=== PATIENT | female | born 2005 | race Caucasian/White ===

== ENCOUNTER 2023-08-06 18:30 | Outpatient (CLI) | payer OTHER, SELFPAY | END 2023-08-06 18:31 | disposition home or self-care (01) | LOC: NFLDREF 08-23 09:06 | PROVIDERS: PCP Registered Nurse; Visit Provider Registered Nurse | DX: R07.89 Other chest pain (principal) | CPT/HCPCS: 84484 ==

== ENCOUNTER 2024-07-17 16:44 | Emergency (ER) | payer OTHER, SELFPAY ==
--- OUTSIDE RECORDS SUMMARY | 2024-07-17 16:47 | XMS_ITS | Clinical Summary ---
Author Organization [facility] Address [address] [facility] [place] [address] Care Team Providers Care Supervisor Litharge Name Role Phone Unavailable Primary Care Provider Unavailabl e Social History Tobacco Use Types Packs/Day Years Used Date Smoking Tobacco: Never Assessed Comments Unknown Sex and Gender Information Value Date Recorded Sex Assigned at Not on file Legal Sex Female 12:00 AM PST Gender Identity Not on file Sexual Orientation Not on file Plan of Treatment Not on file
--- OUTSIDE RECORDS SUMMARY | 2024-07-17 16:47 | XMS_ITS | Clinical Summary ---
Author Organization [facility] Address [address] [place] [address] Care Team Providers Care Brush Loader And Handle Attacher Name Role Phone Unavailable Primary Care Provider Unavailabl e Social History Tobacco Use Types Packs/Day Years Used Date Smoking Tobacco: Never Assessed Comments Unknown Sex and Gender Information Value Date Recorded Sex Assigned at Not on file Legal Sex Female 1:46 PM HAND III CUTTER Gender Identity Not on file Sexual Orientation Not on file Plan of Treatment Not on file
--- OUTSIDE RECORDS SUMMARY | 2024-07-17 16:47 | XMS_ITS | Encounter Summary ---
Author Organization [facility] Address [address] [place] [address] Care Team Providers Care Driver Guide Name Role Phone Madelyn Oneil MD Primary Care Provider [phone] Encounter Details Date Type Department Care Team (Late st Contact Info) Description 01/13/2023 Prep for Case Gastroenterology: [facility] [address] [place] [address] Seth Madrid MD [address] [facility] [address] [place] [address] Constipation, unspecified constipation type (Primary Dx); Blood in stool Social History Tobacco Use Types Packs/Day Years Used Date Smoking Tobacco: Never Smokeless Tobacco: Never Alcohol Use Standard Drinks/Week Comments Not Currently 3 (1 standard drink = 0.6 oz pure alcohol) I drink very very occasionally Alcohol Use Answer Date Recorded Alcohol Use No 01/13/2023 Male: 9+ ounces (15+ Standard Drinks) per week T hreshold Not on file 01/13/2023 Female: 4.8+ ounces (8+ Standard Drinks) per wee k Threshold 1.8 01/13/2023 Comments Unknown Sex and Gender Information Value Date Recorded Sex Assigned at Female 02/15/2023 10:01 AM TUBE STATION ATTENDANT Legal Sex Female 12:53 PM CDT Gender Identity Female 02/15/2023 10:01 AM TUBE STATION ATTENDANT Sexual Orientation Not on file documented as of this encounter Plan of Treatment Not on file documented as of this encounter Visit Diagnoses Diagnosis Constipation, unspecified constipation type- Primary Blood in stool documented in this encounter Orders Case Request Count Last Ordered Date First Orde red Date CASE REQUEST GI ENDOSCOPY 1 01/13/2023 documented in this encounter Care Teams Driver Guide Relationship Specialty Start Date End Date Madelyn Oneil MD [address] [place] [address] PCP - General Emergency Medicine 10/21/22 documented as of this encounter
--- OUTSIDE RECORDS SUMMARY | 2024-07-17 16:47 | XMS_ITS | Encounter Summary ---
Author Organization [facility] Address [address] [place] [address] Care Team Providers Care Transport Conductor Name Role Phone Unavailable Primary Care Provider Unavailabl e Prior Encounters Date Type Department Care Team Description 04/17/2019 Converted CPS Chart Documents [facility] [address] [place] [phone] <No scans attached> 04/17/2019 Converted 13x Documents [facility] [address] [place] [phone] <No scans attached> Plan of Treatment Not on file Procedures Procedure Name Priority Date/Time Associated Diagnosis Comments TOPICAL APPLICATION OF FLUORIDE VARNISH Routine 01/06/2016 2:00 AM CDT PROPHYLAXIS - CHILD Routine 01/06/2016 2 :00 AM CDT ORAL HYGIENE INSTRUCTIONS Routine 2015 2:00 AM CDT PERIODIC ORAL EVALUATION - ESTABLISHED PATIENT Routine 01/06/2016 2:00 AM CDT TOPICAL APPLICATION OF FLUORIDE VARNISH Routine 07/01/2015 2:00 AM CDT PROPHYLAXIS - CHILD Routine 07/01/2015 2 :00 AM CDT ORAL HYGIENE INSTRUCTIONS Routine 2015 2:00 AM CDT PERIODIC ORAL EVALUATION - ESTABLISHED PATIENT Routine 07/01/2015 2:00 AM CDT TOPICAL APPLICATION OF FLUORIDE VARNISH Routine 12/17/2014 2:00 AM CDT PROPHYLAXIS - CHILD Routine 12/17/2014 2 :00 AM CDT COMPREHENSIVE ORAL EVALUATION - NEW OR ESTABLISHED PATIENT Routine 12/17/2014 2:00 AM CDT ORAL HYGIENE INSTRUCTIONS Routine 2014 2:00 AM CDT BITEWINGS - TWO RADIOGRAPHIC IMAGES Routine 12/17/2014 2:00 AM CDT LIMITED ORAL EVALUATION - PROBLEM FOCUSED Routine 11/09/2014 2:00 AM CDT SINGLE X-RAY Routine 11/09/2014 2:00 AM CDT Visit Diagnoses Not on file
--- OUTSIDE RECORDS SUMMARY | 2024-07-17 16:47 | XMS_ITS | Clinical Summary ---
Author Organization [facility] Address [address] [place] [address] Care Team Providers Care Spotter Driver Name Role Phone Madelyn Oneil MD Primary Care Provider [phone] Source Comments Some departments are not documenting in the electronic medical record. If you do not see the information that you expected, contact Release of Information in the Health Information Management department at [phone] for further assistance in locating additional records.[facility] Allergies No known active allergies Medications buPROPion XL (WELLBUTRIN XL) 150 mg tablet 3 Active psyllium husk (with sugar) (METAMUCIL (WITH SUGAR)) 3.4 gram packet Take one packet by mouth twice daily. 60 packet 11 3 Active docusate (COLACE) 100 mg capsule Take one capsule by mouth twice daily. 60 capsule 5 3 Active polyethylene glycol 3350 (MIRALAX) 17 g packet Take one packet by mouth daily. 60 packet 3 3 Active peg-electrolyte solution (NULYTELY LEMON-GULKANA) 420 gram oral solution Mix as directed on package. Drink 240ml (8oz) every 10 minutes until gone. Refrigerate once mixed. 4000 mL 4 Active escitalopram oxalate (LEXAPRO) 10 mg tablet Take one tablet by mouth daily. 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 We are not sure though. Depression Apr 20 I take Wellbutri n Social History Tobacco Use Types Packs/Day Years Used Date Smoking Tobacco: Never Smokeless Tobacco: Never Tobacco Cessation:Counseling Given: Not Answered Alcohol Use Standard Drinks/Week Comments Not Currently 3 (1 standard drink = 0.6 oz pure alcohol) I drink very very occasionally Alcohol Use Answer Date Recorded Alcohol Use No 01/13/2023 Male: 9+ ounces (15+ Standard Drinks) per week T hreshold Not on file 01/13/2023 Female: 4.8+ ounces (8+ Standard Drinks) per wee k Threshold 1.8 01/13/2023 Comments No Sex and Gender Information Value Date Recorded Sex Assigned at Female 02/15/2023 10:01 AM MANUFACTURING MAINTENANCE MANAGER Legal Sex Female 12:53 PM CDT Gender Identity Female 02/15/2023 10:01 AM MANUFACTURING MAINTENANCE MANAGER Sexual Orientation Not on file Obstetrics History Last Filed Vital Signs Vital Sign Reading Time Taken Comments Blood Pressure 110/71 11/01/2023 12:02 PM CDT Pulse 92 11/01/2023 12:02 PM CDT Temperature 37 C (98.6 F) 11/01/2023 12:02 PM CDT Respiratory Rate - - Oxygen Saturation 99% 11/01/2023 12:02 PM CDT Inhaled Oxygen Concentration - - Weight 65.8 kg (145 lb) 11/01/2023 12:02 PM CDT Height - - Body Mass Index - - Plan of Treatment Health Maintenance Due Date Last Done Comments HIV SCREENING 09/22/2018 HPV VACCINES (1 - 3-dose series) 09/22/2018 MENINGOCOCCAL B VACCINE (1 o f 2 - Standard) 2019 DTAP/TDAP VACCINES (1 - Tdap) 09/22/2021 HEPATITIS C SCREENING 09/22/2021 PHYSICAL (COMPREHENSIVE) EXAM 09/22/2021 COVID-19 VACCINE (4 - 2023-2 5 season) 2023 02/25/2022, 05/10/2021, 10/03/2020 DEPRESSION SCREENING 03/29/2024 INFLUENZA VACCINE (Season Ended) 2024 02/25/2022 MENINGOCOCCAL VACCINE (ACWY,Menactra) Aged Out No longer eligible b ased on patient's age to complete this topic PNEUMOCOCCAL VACCINE Aged Out No long er eligible based on patient's age to complete this topic Insurance [facility] CHOICE/CHOICE PLUS Care Teams Spotter Driver Relationship Specialty Start Date End Date Madelyn Oneil MD [address] [place] [address] PCP - General Emergency Medicine 10/21/22
[2024-07-17 16:52] VITALS: BP 135/91; PULSE 98; RESP 16; TEMP 37.1; O2SAT 98; BMI 28.2
--- NOTE | 2024-07-17 17:11 | CRLHL7_ITS ---
For Patients: As a result of the Century Cures Act, medical imaging exams and procedure reports are released immediately into your electronic medical record. You may view this report before your referring provider. If you have questions, please contact your health care provider. INDICATION: Leg pain and swelling. TECHNIQUE: Ultrasound venous duplex lower right extremity. Compression venous exam was performed using becerra-scale, color Doppler, and spectral Doppler analysis. COMPARISON: None. FINDINGS: Deep veins: Sonographic imaging demonstrates the right common femoral, deep femoral, superficial femoral, popliteal, posterior tibial and the contralateral common femoral veins to be fully compressible with normal color Doppler blood flow. Superficial veins: Greater saphenous vein is fully compressible. No popliteal cyst. IMPRESSION: Normal right lower extremity venous ultrasound, no sign of deep venous thrombosis. Dictated by Charles Hamilton MD @ 07/17/2024 7:24:48 PM (Electronically Signed)
--- NOTE | 2024-07-17 18:41 | ED.GENADULT ---
HPI - General Adult General Time Seen by Provider: 18:41 Date Seen: 08/02/24 Chief complaint: Extremity Pain/Injury, Lower Stated complaint: possible blood clot in right leg Time Seen by Provider: 07/17/24 18:36 Source: patient, RN notes reviewed and old records reviewed Mode of arrival: ambulatory Limitations: no limitations History of Present Illness HPI narrative: 18-year-old female who presents today with concern for blood clot in her leg. Patient says she was walking this morning, had a sudden sharp pain in her lateral calf on the right and a little bit radiating into the medial knee. Was still able to walk, took some ibuprofen and felt better but has continued to have some pain. No chest pain, no shortness of breath. She has a history of a ?venous malformation? in the right leg and there is been intermittent concern for clots but she has never had a documented clot. Related Data Home Medications ?Medication ?Instructions ?Recorded ?Confirmed bupropion HCl 300 mg 24 hr tablet, 300 mg PO DAILY 08/06/23 07/17/24 extended release Allergies Allergy/AdvReac Type Severity Reaction Status Date / Time No Known Drug Allergies Allergy Verified 07/17/24 16:51 PFSH PFSH Social History Smoking Status: Never smoker How often do you have a drink containing alcohol: never AUDIT-C Alcohol total score: 0 Non-prescribed substance use: denies use service: No Exam Narrative: Exam Narrative: General: well nourished , NAD Head: Atraumatic and normocephalic ENT: External ears and external nose are normal Eyes: Conjunctiva clear, pupils are equal reactive, external ocular motions are intact Neck: Full spontaneous range of motion of the neck Lungs: No respiratory distress Musculoskeletal: No tenderness or deformity. There is a 1 cm area of ecchymosis that is yellowish brown in color over the anterior medial knee, no swelling or tenderness leg, on the right leg is slightly atrophic compared to the left which patient says is chronic, also small knee effusion on the right which patient also says is chronic and unchanged from usual Neurologic: No gross focal neurologic deficits Skin: No rashes Psych: Mood and affect are appropriate Const: Vital Signs, click to edit/add: Vital Signs - 24 hr 07/17/24 16:52 Temperature 98.8 F Pulse Rate [Pulse Oximeter] 98 Respiratory Rate 16 Blood Pressure [Ri ght Upper Arm] 135/91 H Pulse Oximetry 98 Oxygen Delivery Me thod Room Air Course Course ED Course: Reviewed prior urgent care visit from July 2023 when patient presented for chest pain after and blood drawn 3 days prior, has a history of anxiety, that time reassuring evaluation. Patient presents today with atraumatic right calf pain, improved with ibuprofen today. On exam, patient is finally stable, no tenderness of the leg, swelling. Ultrasound is ordered due to patient concern for DVT in setting of known venous malformation of this leg, however clinically symptoms seem most consistent with musculoskeletal pain. Reevaluation(s) Time of Reevaluation #1: 19:41 Reevaluation #1: Reviewed radiology report for right lower extremity ultrasound was negative for DVT. Discussed results with patient, stable for discharge. Vital Signs Vital signs: Initial Vital Signs Temperature 98.8 F 07/17/24 16:52 Temperature Source Temporal Artery Scan 07/17/24 16:52 Pulse Rate 98 07/17/24 16:52 Respiratory Rate 16 07/17/24 16:52 Blood Pressure 135/91 H 07/17/24 16:52 Blood Pressure Mean 105 07/17/24 16:52 Pulse Oximetry 98 07/17/24 16:52 Oxygen Delivery Method Room Air 07/17/24 16:52 Vital Signs Temperature 98.8 F 07/17/24 16:52 Pulse Rate 98 07/17/24 16:52 Respiratory Rate 16 07/17/24 16:52 Blood Pressure 135/91 H 07/17/24 16:52 Pulse Oximetry 98 07/17/24 16:52 Oxygen Delivery Method Room Air 07/17/24 16:52 Temperature 98.8 F 07/17/24 16:52 Pulse Rate 98 07/17/24 16:52 Respiratory Rate 16 07/17/24 16:52 Blood Pressure 135/91 H 07/17/24 16:52 Pulse Oximetry 98 07/17/24 16:52 Oxygen Delivery Method Room Air 07/17/24 16:52 Discharge Plan Discharge Clinical Impression: Acute pain of right lower extremity Patient Disposition: Home, Self-Care Condition: Stable Instructions: Leg Pain (ED) Additional Instructions: Tylenol and ibuprofen as needed for pain Activity as tolerated Ice or heat for comfort Follow-up with primary care in 1 week Activity Level: Activity as Tolerated Discharge Diet: Regular Prescriptions: No Action bupropion HCl 300 mg tablet extended release 24 hr 300 mg PO DAILY Follow Up/Referrals: Provider,Not a Local [Primary Care Provider] - Stand Alone Forms: [employer] Info Instructions
[2024-07-17 19:59] VITALS: BP 135/91; PULSE 98; RESP 16; TEMP 37.1
--- OUTSIDE RECORDS SUMMARY | 2024-07-17 20:38 | XMS_ITS | Encounter Summary ---
Author Organization [facility] Address [address] [place] [address] Care Team Providers Care Gluing Machine Operator Name Role Phone Unavailable Primary Care Provider Unavailabl e Prior Encounters Date Type Department Care Team Description 04/17/2019 Converted CPS Chart Documents [facility] [address] [place] [phone] <No scans attached> 04/17/2019 Converted 13x Documents [facility] [address] [place] [phone] <No scans attached> Plan of Treatment Not [...]
--- OUTSIDE RECORDS SUMMARY | 2024-07-17 20:38 | XMS_ITS | Clinical Summary ---
Author Organization [facility] Address [address] [facility] [place] [address] Care Team Providers Care Automotive Quality Engineer Name Role Phone Unavailable Primary Care Provider [...]
--- OUTSIDE RECORDS SUMMARY | 2024-07-17 20:38 | XMS_ITS | Clinical Summary ---
Author Organization [facility] Address [address] [place] [address] Care Team Providers Care Medical Researcher Name Role Phone Unavailable Primary Care Provider Unavailabl e Social History Tobacco Use Types Packs/Day Years Used Date Smoking Tobacco: Never Assessed Comments Unknown Sex and Gender Information Value Date Recorded Sex Assigned at Not on file Legal Sex Female 1:46 PM RACKMAN Gender Identity Not on file Sexual Orientation Not on file Plan of Treatment Not on file
--- OUTSIDE RECORDS SUMMARY | 2024-07-17 20:38 | XMS_ITS | Encounter Summary ---
Author Organization [facility] Address [address] [place] [address] Care Team Providers Care Parts Data Writer Name Role Phone Madelyn Oneil MD Primary Care Provider [phone] Encounter Details Date Type Department Care Team (Late st Contact Info) Description 01/13/2023 Prep for Case Gastroenterology: [facility] [address] [place] [address] Seth Madrid MD [address] Orth[facility] [address] [place] [address] Constipation, unspecified constipation type (Primary [...] Sex Assigned at Female 02/15/2023 10:01 AM WEBBING WEAVER Legal Sex Female 12:53 PM CDT Gender Identity Female 02/15/2023 10:01 AM WEBBING WEAVER Sexual Orientation Not on file documented as of this encounter Plan of Treatment Not on file documented as of this encounter Visit Diagnoses Diagnosis Constipation, unspecified constipation type- Primary Blood in stool documented in this encounter Orders Case Request Count Last Ordered Date First Orde red Date CASE REQUEST GI ENDOSCOPY 1 01/13/2023 documented in this encounter Care Teams Parts Data Writer Relationship Specialty Start Date End Date Madelyn Oneil MD [address] [place] [address] PCP - General Emergency Medicine 10/21/22 documented as of this encounter
--- OUTSIDE RECORDS SUMMARY | 2024-07-17 20:38 | XMS_ITS | Clinical Summary ---
Author Organization [facility] Address [address] [place] [address] Care Team Providers Care Separator Inserter Name Role Phone Madelyn Oneil MD Primary Care Provider [phone] Source Comments Some departments are not documenting in the electronic medical record. If you do not see the information that you expected, contact Release of Information in the Health Information Management department at [phone] for further assistance in locating additional records.[facility] Allergies No known active allergies Medications buPROPion [...] packet 3 3 Active peg-electrolyte solution (NULYTELY LEMON-ANGOON) 420 gram oral solution Mix as directed [...] FLEXIBLE performed by Seth Madrid MD at [facility] Medical History Medical History Date Comments [...] Sex Assigned at Female 02/15/2023 10:01 AM BATHROOM TILING PROFESSIONAL Legal Sex Female 12:53 PM CDT Gender Identity Female 02/15/2023 10:01 AM BATHROOM TILING PROFESSIONAL Sexual Orientation Not on file Obstetrics History [...] patient's age to complete this topic Insurance [facility] CHOICE/CHOICE PLUS Care Teams Separator Inserter Relationship Specialty Start Date End Date Madelyn Oneil MD [address] [place] [address] PCP - General Emergency Medicine 10/21/22
== END 2024-07-17 20:35 | disposition home or self-care (01) ==
PROVIDERS: Emergency Provider Family Medicine
DX: M79.661 Pain in right lower leg (principal)
CPT/HCPCS: 93971; 99283; 99284